=== PATIENT | female | born 1945 | race Caucasian/White ===

== ENCOUNTER 2016-05-08 16:09 | Emergency (ER) | payer MEDICARE, BC ==
[~2016-05-08 16:09] MED LIST: ASAB PO; C2 PO; CARDCD180 PO; CELEXA20 PO; COREG25 PO; FESO4 PO; HYDROCHLOROT25 MG PO; KLONO5 PO; MAX25 PO; MVI PO; PAXIL40 MG PO; PCET PO; PRIN10 PO; PRIN20 PO; VITC500 PO; X5 PO; ZOCOR10 PO
[2016-05-16] MEDS ORDERED: DIL2TAB PO (10:39)
[2016-05-16] MEDS ORDERED: VIST25 PO (10:40)
== END 2016-05-08 20:28 | disposition home or self-care (01) ==
LOC: ER 16:09
DX: S42.202A Unspecified fracture of upper end of left humerus, initial encounter for closed fracture (principal); I10 Essential (primary) hypertension; I48.91 Unspecified atrial fibrillation; E78.00 Pure hypercholesterolemia, unspecified; F32.9 Major depressive disorder, single episode, unspecified; Z88.5 Allergy status to narcotic agent; Z88.0 Allergy status to penicillin; Z79.82 Long term (current) use of aspirin; Z79.899 Other long term (current) drug therapy; W19.XXXA Unspecified fall, initial encounter
CPT/HCPCS: 73030-LT; 73080-LT; 96372; 99284; J1170